=== PATIENT | female | born 1970 | race Caucasian/White ===

== ENCOUNTER 2017-06-16 11:53 | Emergency (ER) | payer OTHER ==
[2017-06-16 12:00] VITALS: BP 120/60; PULSE 65; TEMP 98; BMI 26.5
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
[2017-06-16] MEDS ORDERED: CYCLOBENZAPRINE HCL 5 MG TABLET PO SCH (12:30)
[2017-06-16] MEDS ORDERED: CYCLOBENZAPRINE HCL 10 MG TABLET (FP) ONE (12:31)
[2017-06-16] MEDS ORDERED: KETOROLAC TROMETHAMINE 60 MG/2 ML VIAL IM ONE (13:21)
[2017-06-16] MEDS ORDERED: KETOROLAC TROMETHAMINE 60 MG/2 ML VIAL ONE (13:26)
== END 2017-06-16 14:12 | disposition home or self-care (01) ==
LOC: JERFT 11:53
PROC: 3E0233Z Introduction of Anti-inflammatory into Muscle, Percutaneous Approach (ICD-10-PCS; principal; 2017-06-16)
DX: V43.52XA Car driver injured in collision with other type car in traffic accident, initial encounter (principal); Y93.89 Activity, other specified; Y92.410 Unspecified street and highway as the place of occurrence of the external cause; M62.838 Other muscle spasm; M48.02 Spinal stenosis, cervical region
CPT/HCPCS: 70450-TC; 72125-TC; 84703; 99281-25

== ENCOUNTER 2017-06-18 12:35 | Emergency (ER) | payer OTHER ==
[2017-06-18 12:41] VITALS: TEMP 98.4; BMI 26.5
--- NOTE | 2017-06-18 12:55 | PDOC ---
History of Present Illness - General Chief Complaint: Chest Pain Stated Complaint: CHEST PAIN Time Seen by Provider: 06/18/17 12:52 - History of Present Illness Initial Comments: 06/18/17 13:05 The patient is a 44 year old female with PMHx of HTN, Asthma, HLD, Anxiety, CAD , bridge syndrome,MVP, A-fib, Anxiety, who presents to the ED with left sided- chest pain, non-radiating since this morning around 8am. The pain makes the chest feel tight, is cramping,comes and goes. Pain sometimes increased with deep inspiration. 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 Family history of cardiac-related deaths in members in their 50's and 60's. 06/18/17 13:26 Past History - Past Medical History Allergies/Adverse Reactions: Allergies Allergy/AdvReac Type Severity Reaction Status Date / Time No Known Allergies Allergy Verified 06/18/17 12:40 Home Medications: Ambulatory Orders Cyclobenzaprine HCl [Flexeril -] 10 mg PO TID #15 tablet 06/16/17 Anemia: No Asthma: Yes Cancer: No (MVP, PVC'S) Cardiac Disorders: Yes CVA: No COPD: No CHF: No Dementia: No Diabetes: No GI Disorders: No Disorders: No HTN: Yes Hypercholesterolemia: Yes Kidney Stones: No Liver Disease: No Psychiatric Problems: Yes (ANXIETY.) Seizures: No Thyroid Disease: No - Surgical History Abdominal Surgery: No Appendectomy: Yes Cardiac Surgery: No Cholecystectomy: No Lung Surgery: No Neurologic Surgery: No Orthopedic Surgery: Yes (left knee replacement in 1995) - Reproductive History (#): 4 Para: 2 Therapeutic (s) & number: Yes (1) Spontaneous : 1 - Immunization History Immunization Up to Date: Yes - Suicide/Smoking/Psychosocial Hx Smoking Status: Yes Smoking History: Current every day smoker Have you smoked in the past 12 months: Yes Number of Cigarettes Smoked Daily: 10 Information on smoking cessation initiated: No 'Breaking Loose' booklet given: 06/16/17 Hx Alcohol Use: No Drug/Substance Use Hx: No Substance Use Type: None Hx Substance Use Treatment: Yes Cardiac Specific PMH - Complaint Specific PMHX Pacemaker: No Review of Systems - Review of Systems Able to Perform ROS?: Yes Is the patient limited Panamanian proficient: No Constitutional: No: Symptoms Reported HEENTM: No: Symptoms Reported Respiratory: No: Symptoms reported Cardiac (ROS): Yes: See HPI. No: Symptoms Reported : No: Symptoms Reported Musculoskeletal: No: Symptoms Reported Integumentary: No: Symptoms Reported Neurological: No: Symptoms reported All Other Systems: Reviewed and Negative *Physical Exam - Vital Signs Last Vital Signs Temp Pulse Resp BP Pulse Ox 98.4 F 71 18 121/72 99 06/18/17 12:37 06/18/17 12:37 06/18/17 12:37 06/18/17 12:37 06/18/17 12:37 - Physical Exam General Appearance: Yes: Nourished, Appropriately Dressed. No: Apparent Distress HEENT: positive: EOMI, NINI, Normal ENT Inspection Neck: negative: Tender Respiratory/Chest: positive: Lungs Clear, Normal Breath Sounds. negative: Chest Tender, Respiratory Distress Cardiovascular: positive: Regular Rhythm, Regular Rate, S1, S2 Gastrointestinal/Abdominal: positive: Normal Bowel Sounds, Flat. negative: Tender ED Treatment Course - LABORATORY CBC & Chemistry Diagram: 06/18/17 13:19 06/18/17 13:19 - ADDITIONAL ORDERS Additional order review: Laboratory Results 06/18/17 06/18/17 06/18/17 15:00 13:19 13:19 PT with INR 11.60 INR 1.03 PTT (Actin FS) 29.9 Sodium Potassium Chloride Carbon Dioxide Anion Gap BUN Creatinine Creat Clearance w eGFR Random Glucose Calcium Total Bilirubin AST ALT Alkaline Phosphatase Creatine Kinase 107 Troponin I < 0.02 Total Protein Albumin Beta HCG, Quant < 1.0 Urine Color Urine Appearance Urine pH Ur Specific [place] Urine Protein Urine Glucose (UA) Urine Ketones Urine Blood Urine Nitrite Urine Bilirubin Urine Urobilinogen Ur Leukocyte Esterase 06/18/17 06/18/17 13:19 13:19 PT with INR INR PTT (Actin FS) Sodium 139 Potassium 5.2 H D Chloride 107 Carbon Dioxide 25 Anion Gap 7 L BUN 17 D Creatinine 0.8 Creat Clearance w eGFR > 60 Random Glucose 74 Calcium 8.5 Total Bilirubin 0.3 D AST 22 D ALT 21 Alkaline Phosphatase 59 Creatine Kinase 111 Troponin I < 0.02 Total Protein 7.2 Albumin 4.1 Beta HCG, Quant Urine Color Ltyellow Urine Appearance Slcloudy Urine pH 5.0 Ur Specific [place] 1.013 Urine Protein Negative Urine Glucose (UA) Negative Urine Ketones Negative Urine Blood Negative Urine Nitrite Negative Urine Bilirubin Negative Urine Urobilinogen Negative Ur Leukocyte Esterase Negative 06/18/17 13:19 RBC 4.18 MCV 91.9 MCHC 33.7 RDW 14.2 MPV 8.3 D Neutrophils % 69.4 D Lymphocytes % 17.9 D Monocytes % 7.0 Eosinophils % 5.0 H Basophils % 0.7 - RADIOLOGY Radiology Studies Ordered: Category Date Time Status CHEST X-RAY PORTABLE* [RAD] Stat Radiology 06/18/17 12:54 Completed Medical Decision Making - Medical Decision Making 06/18/17 14:52 Basic labs and cardiac panel pending. CXR: A single view the chest is been submitted. Since 03/10/2015, there is a slightly weaker inspiration with clear lungs, normal mediastinum and sharp angles. There is a slight scoliosis. The soft tissues are intact. An acute process is not seen. Impression: Scoliosis. No acute chest pathology. No change of an adverse nature since 2014 Will repeat panel 3 hours later. 06/18/17 15:59 Both set of tomonins negative patient ok to D/C Follow up with oil derrick operator. *DC/Admit/Observation/Transfer Diagnosis at time of Disposition: Atypical chest pain - Discharge Dispostion Disposition: HOME Admit: No - Referrals Referrals: STAFF,NOT ON [Primary Care Provider] - - Patient Instructions Printed Discharge Instructions: DI for Atypical Chest Pain Additional Instructions: Please follow up with your primary physician and oil derrick operator within the next 3- 4 days Come back to the ER for any new, worsening or concerning symptom. - Post Discharge Activity
[2017-06-18 13:44] LABS: BASO % 0.7 % (0-2.0); HEMATOCRIT 38.5 % (32.4-45.2); LYMPH % 17.9 % (8-40); MCHC 33.7 g/dl (32.0-36.0); MEAN CELL VOLUME 91.9 fl (80-96); MEAN PLT VOLUME 8.3 fl (7.5-11.1); NEUT % 69.4 % (42.8-82.8); PLATELET COUNT 262 K/MM3 (134-434); RBC 4.18 M/mm3 (3.60-5.2); RDW 14.2 % (11.6-15.6); WHITE BLOOD COUNT 8.3 K/mm3 (4.0-10.0)
[2017-06-18 13:58] LABS: INR 1.03 (0.82-1.09); PROTHROMBIN TIME (PATIENT) 11.6 SEC (9.98-11.88)
[2017-06-18 14:01] LABS: ACTIVATED PTT 29.9 SECONDS (26.9-34.4)
[2017-06-18 14:12] LABS: ALBUMIN 4.1 g/dl (3.4-5.0); ANION GAP 7 (8-16); BILIRUBIN,TOTAL 0.3 mg/dL (0.2-1.0); BLOOD UREA NITROGEN 17 mg/dL (7-18); CALCIUM 8.5 mg/dL (8.5-10.1); CHLORIDE 107 mmol/L (98-107); CO2 25 mmol/L (21-32); CREATININE 0.8 mg/dL (0.55-1.02); GLUCOSE,RANDOM 74 mg/dL (74-106); POTASSIUM 5.2 mmol/L (3.5-5.1); SGOT/AST 22 U/L (15-37); SGPT/ALT 21 U/L (12-78); SODIUM 139 mmol/L (136-145); TOT PROT 7.2 g/dl (6.4-8.2)
[2017-06-18 14:14] LABS: ALK PHOS 59 U/L (45-117); URINE APPEARANCE SLCLOUDY; URINE BILIRUBIN NEGATIVE (NEGATIVE); URINE BLOOD NEGATIVE (NEGATIVE); URINE COLOR LTYELLOW; URINE GLUCOSE (UA) NEGATIVE (NEGATIVE); URINE KETONE NEGATIVE (NEGATIVE); URINE LEUK ESTERASE NEGATIVE (NEGATIVE); URINE NITRITE NEGATIVE (NEGATIVE); URINE PROTEIN NEGATIVE (NEGATIVE); URINE UROBILINOGEN NEGATIVE mg/dL (0.2-1.0)
--- NOTE | 2017-06-18 14:41 | PDOC ---
Attending Attestation - HPI HPI: 06/18/17 14:59 The patient is a 46 year old female, current smoker (10 cigarettes daily), with a past medical history of hypertension, asthma, hyperlipidemia, anxiety, coronary artery disease, "bridge syndrome," mitral valve prolapse, and atrial- fibrillation who presents to the emergency department with left-sided intermittent chest pain, non-radiating since 8 am this morning. The patient describes her chest pain as moderate tight, cramping, and waxing and waning. The patient reports her pain worsening with deep inspiration. She reports her pain occasionally radiating to her jaw during very painful episodes. She denies any shortness of breath. She denies any dizziness, weakness, numbness or tingling in all extremities. She denies any contraceptive use. She denies any history of deep venous thrombosis. She reports being sober for the past year. She reports a family history of cardiac-related deaths in members in their 50's and 60's. - Physicial Exam PE: 06/18/17 15:09 Vitals: Triage Vital signs reviewed General Appearance: no acute distress, well nourished well developed, Head: Atraumatic, normocephalic Eyes: Pupils equal reactive round, extraocular movement intact Ears: TM's normal bilaterally; Nose: Nares patent bilaterally;no nasal congestion Throat: Posterior oropharynx without erythema, mucous membranes moist, Neck: Supple;No Nuchal rigidity Chest Wall: Nontender Cardiac: Regular rate and rhythm, no murmurs, no rubs, no gallops, Lungs: Clear to auscultation bilateral, good air movement bilaterally, Abdomen: Soft, nondistended, normal bowel sounds, nontender to palpation Rectal: Exam deferred Extremities: Full range of motion to all extremities, no cyanosis, clubbing, or edema Skin: Warm and dry, no rashes or lesions, no petechiae Neuro: AOX3; Cranial Nerves 2-12 grossly c intact, Strength intact to all extremities, Sensation intact to all extremities, gait normal Psych: normal mood, normal affect - Medical Decision Making 06/18/17 15:09 Documentation prepared by Ratna Chand, acting as certified medical assistant for Stephen Wilkins MD. <Ratna Chand - Last Filed: 06/18/17 15:22> - Resident Resident Name: José Miguel Orlando - ED Attending Attestation I have performed the following: I have examined & evaluated the patient, The case was reviewed & discussed with the resident, I agree w/resident's findings & plan, Exceptions are as noted - Medical Decision Making Heart score 3 troponin negative 2 Chest pain-free nonischemic EKG Patient has cardiology follow-up Findings, the need for follow-up, strict return instructions discussed with patient. <Stephen Wilkins - Last Filed: 06/18/17 16:34> Heart Score/ECG Review - ECG Impressions Comment:: 06/18/17 15:19 EKG performed at 12:43 demonstrates rate of 68 <Ratna Chand - Last Filed: 06/18/17 15:22>
[2017-06-18 16:12] VITALS: BP 112/76; PULSE 72
--- NOTE | 2017-06-19 12:37 | EKG ---
Test Reason : Blood Pressure : / mmHG Vent. Rate : 068 BPM Atrial Rate : 068 BPM P-R Int : 150 ms QRS Dur : 092 ms QT Int : 410 ms P-R-T Axes : 070 017 017 degrees QTc Int : 435 ms SINUS RHYTHM NONSPECIFIC T WAVE ABNORMALITY ABNORMAL ECG WHEN COMPARED WITH ECG OF 10-MAR-2015 21:23, T WAVE VARIATION Confirmed by IVETTE SHANNON MD ([id number]) on 06/19/2017 12:37:34 PM Referred By: Confirmed By:IVETTE SHANNON MD
== END 2017-06-18 16:13 | disposition home or self-care (01) ==
LOC: JER 12:35
DX: R07.89 Other chest pain (principal); I10 Essential (primary) hypertension; E78.00 Pure hypercholesterolemia, unspecified; F41.9 Anxiety disorder, unspecified; I34.1 Nonrheumatic mitral (valve) prolapse
CPT/HCPCS: 36415; 71045-TC; 80053; 81003; 82550; 84484; 84702; 85025; 85610; 85730; 93005; 93010; 99284-25

== ENCOUNTER 2017-10-31 09:49 | Emergency (ER) | payer OTHER ==
[2017-10-31 10:01] VITALS: BP 119/87; PULSE 77; TEMP 98.6; BMI 26.9
--- NOTE | 2017-10-31 10:30 | PDOC ---
History of Present Illness - General Chief Complaint: Cold Symptoms Stated Complaint: CONGESTION Time Seen by Provider: 10/31/17 10:24 History Source: Patient Exam Limitations: No Limitations - History of Present Illness Initial Comments: 10/31/17 10:30 Best Contact: PCP: Gustavo name Pmhx: n PVC syndrome, mitral valve leak, bridge syndrome Pshx: 1980s: [facility] scopic appendectomy, 1990s: Left knee arthroscopy/C-sections Allergies:NKDA LMP: 10/13/2017 47-year-old female presents to the ER complaining of facial pain, bilateral ear clogging sensation 4 days without fever, chills, sore throat nausea/vomiting, ear ache, difficulty swallowing, neck stiffness/pain, back pain, chest pain, shortness of breath, abdominal pains, flank pains, urinary symptoms. Past History - Past Medical History Allergies/Adverse Reactions: Allergies Allergy/AdvReac Type Severity Reaction Status Date / Time No Known Allergies Allergy Verified 10/31/17 09:56 Home Medications: Ambulatory Orders Amoxicillin/Potassium Clav [Augmentin 875-125 Tablet] 1 each PO BID #20 tablet 10/31/17 Anemia: No Asthma: Yes Cancer: No (MVP, PVC'S, bridge syndrome) Cardiac Disorders: Yes CVA: No COPD: No CHF: No Dementia: No Diabetes: No GI Disorders: No Disorders: No HTN: Yes Hypercholesterolemia: Yes Kidney Stones: No Liver Disease: No Psychiatric Problems: Yes (ANXIETY.) Seizures: No Thyroid Disease: No - Surgical History Abdominal Surgery: No Appendectomy: Yes Cardiac Surgery: No Cholecystectomy: No Lung Surgery: No Neurologic Surgery: No Orthopedic Surgery: Yes (left knee replacement in 1995) - Reproductive History (#): 4 Para: 2 Therapeutic (s) & number: Yes (1) Spontaneous : 1 - Immunization History Immunization Up to Date: Yes - Suicide/Smoking/Psychosocial Hx Smoking Status: Yes Smoking History: Current every day smoker Have you smoked in the past 12 months: Yes Number of Cigarettes Smoked Daily: 10 Information on smoking cessation initiated: Yes 'Breaking Loose' booklet given: 10/31/17 Hx Alcohol Use: No Drug/Substance Use Hx: No Substance Use Type: None Hx Substance Use Treatment: Yes Review of Systems - Review of Systems Able to Perform ROS?: Yes Comments:: 10/31/17 10:28 CONSTITUTIONAL: Absent: fever, chills, diaphoresis, generalized weakness, malaise, loss of appetite HEENT: +maxillar sinus fullness, Ear clogging sensation Absent: rhinorrhea, nasal congestion, throat pain, throat swelling, difficulty swallowing, mouth swelling, ear pain, eye pain, visual Changes CARDIOVASCULAR: Absent: chest pain, loss of consciousness, palpitations, irregular heart rate, peripheral edema RESPIRATORY: Absent: cough, shortness of breath, dyspnea with exertion, orthopnea, wheezing, stridor, hemoptysis GASTROINTESTINAL: Absent: abdominal pain, abdominal distension, nausea, vomiting, diarrhea, constipation, melena, hematochezia GENITOURINARY: Absent: dysuria, frequency, urgency, hesitancy, hematuria, flank pain, genital pain MUSCULOSKELETAL: Absent: myalgia, arthralgia, joint swelling SKIN: Absent: rash, itching, pallor Is the patient limited Moroccan proficient: No *Physical Exam - Vital Signs Last Vital Signs Temp Pulse Resp BP Pulse Ox 98.6 F 77 18 119/87 100 10/31/17 09:58 10/31/17 09:58 10/31/17 09:58 10/31/17 09:58 10/31/17 09:58 - Physical Exam Comments: 10/31/17 10:28 GENERAL: Well developed, well nourished. Awake and alert. No acute distress. HEENT: +Facial maxillar pain on perciussion Normocephalic, atraumatic. PERRLA, EOMI. No conjunctival pallor. Sclera are non- icteric. Moist mucous membranes. Oropharynx is clear. NECK: Supple. Full ROM. No JVD. Carotid pulses 2+ and symmetric, without bruits. No thyromegaly. No lymphadenopathy. CARDIOVASCULAR: Regular rate and rhythm. No murmurs, rubs, or gallops. Distal pulses are 2+ and symmetric. PULMONARY: No evidence of respiratory distress. Lungs clear to auscultation bilaterally. No wheezing, rales or rhonchi. ABDOMINAL: Soft. Non-tender. Non-distended. No rebound or guarding. No organomegaly. Normoactive bowel sounds. MUSCULOSKELETAL Normal range of motion at all joints. No bony deformities or tenderness. No CVA tenderness. EXTREMITIES: No cyanosis. No clubbing. No edema. No calf tenderness. SKIN: Warm and dry. Normal capillary refill. No rashes. No jaundice. NEUROLOGICAL: Alert, awake, appropriate. Cranial nerves 2-12 intact. No deficits to light touch and temperature in face, upper extremities and lower extremities. No motor deficits in the in face, upper extremities and lower extremities. Normoreflexic in the upper and lower extremities. Normal speech. Toes are down- going bilaterally. Gait is normal without ataxia. PSYCHIATRIC: Cooperative. Good eye contact. Appropriate mood and affect. Moderate Sedation - Procedure Monitoring Vital Signs: Vital Signs Temp Pulse Resp BP Pulse Ox 98.6 F 77 18 119/87 100 10/31/17 09:58 10/31/17 09:58 10/31/17 09:58 10/31/17 09:58 10/31/17 09:58 *DC/Admit/Observation/Transfer Diagnosis at time of Disposition: Sinusitis Qualifiers: Sinusitis location: maxillary Chronicity: unspecified Qualified Code(s): J32.0 - Chronic maxillary sinusitis - Discharge Dispostion Disposition: HOME Condition at time of disposition: Stable Decision to Admit order: No - Prescriptions Prescriptions: Amoxicillin/Potassium Clav [Augmentin 875-125 Tablet] 1 each PO BID #20 tablet - Referrals Referrals: Benjie Parson MD [Staff Physician] - - Patient Instructions Printed Discharge Instructions: DI for Sinusitis Additional Instructions: Antibiotics as prescribed until completion/Augmentin Follow with the ENT listed on your discharge Return to the ER for any concerns, persistent/worsening or severe symptoms - Post Discharge Activity
== END 2017-10-31 10:35 | disposition home or self-care (01) ==
LOC: JERFT 09:49
DX: J32.0 Chronic maxillary sinusitis (principal)
CPT/HCPCS: 99281-25

== ENCOUNTER 2017-12-04 13:25 | Emergency (ER) | payer OTHER ==
[2017-12-04 13:31] VITALS: BP 112/72; PULSE 65; TEMP 98.2; BMI 27.4
[2017-12-04] MEDS ORDERED: DEXAMETHASONE LIQUID 0.5 MG/5 ML 240 ML BULK BOTTLE PO ONE (14:06)
[2017-12-04] MEDS ORDERED: DEXAMETHASONE SOD PHOSPHATE 10 MG/1 ML VIAL ONE (14:08)
--- NOTE | 2017-12-04 14:13 | PDOC ---
History of Present Illness - General Chief Complaint: Rash Stated Complaint: RASH - History of Present Illness Initial Comments: 47-year-old female presents for evaluation of rash 4 days. She states her rash has been very itchy there were no precipitating factors. She denies any associated symptoms. She has a history of hypertension. Cardiac valve disorder. 12/04/17 14:08 Past History - Past Medical History Allergies/Adverse Reactions: Allergies Allergy/AdvReac Type Severity Reaction Status Date / Time No Known Allergies Allergy Verified 12/04/17 13:28 Home Medications: Ambulatory Orders Gabapentin 300 mg PO BID 12/04/17 Metoprolol Succinate 50 mg PO BID 12/04/17 Mometasone Furoate [Elocon] 15 gm TP BID #1 tube 12/04/17 Nitroglycerin 0.3 mg SL DAILY 12/04/17 Quetiapine Fumarate [Seroquel] 150 tab PO HS 12/04/17 Ranolazine [Ranexa] 500 mg PO BID 12/04/17 Sertraline HCl [Zoloft] 100 mg PO DAILY 12/04/17 Anemia: No Asthma: Yes Cancer: No (MVP, PVC'S, bridge syndrome) Cardiac Disorders: Yes CVA: No COPD: No CHF: No DVT: No Dementia: No Diabetes: No GI Disorders: No Disorders: No HTN: Yes Hypercholesterolemia: Yes Kidney Stones: No Liver Disease: No Psychiatric Problems: Yes (ANXIETY.) Seizures: No Thyroid Disease: No - Surgical History Abdominal Surgery: No Appendectomy: Yes Cardiac Surgery: No Cholecystectomy: No Lung Surgery: No Neurologic Surgery: No Orthopedic Surgery: Yes (left knee replacement in 1995) - Reproductive History (#): 4 Para: 2 Therapeutic (s) & number: Yes (1) Spontaneous : 1 - Immunization History Immunization Up to Date: Yes - Suicide/Smoking/Psychosocial Hx Smoking Status: Yes Smoking History: Current every day smoker Have you smoked in the past 12 months: Yes Number of Cigarettes Smoked Daily: 10 Information on smoking cessation initiated: Yes 'Breaking Loose' booklet given: 12/04/17 Hx Alcohol Use: No Drug/Substance Use Hx: No Substance Use Type: None Hx Substance Use Treatment: Yes Review of Systems - Review of Systems Integumentary: Yes: Rash All Other Systems: Reviewed and Negative *Physical Exam - Vital Signs Last Vital Signs Temp Pulse Resp BP Pulse Ox 98.2 F 65 18 112/72 100 12/04/17 13:28 12/04/17 13:28 12/04/17 13:28 12/04/17 13:28 12/04/17 13:28 - Physical Exam Comments: There is diffuse macular papular rash with raised wheals diffusely across the back and chest there is one on the right cheek and a small amount on the arms. GENERAL: The patient is awake, alert, and fully oriented, in no acute distress. HEAD: Normal with no signs of trauma. Oral mucosa is normal NECK: Normal range of motion, supple without lymphadenopathy, JVD, or masses. LUNGS: Breath sounds equal, clear to auscultation bilaterally. No wheezes, and no crackles. HEART: Regular rate and rhythm, normal S1 and S2 without murmur, rub or gallop. ABDOMEN: Soft, nontender, normoactive bowel sounds. No guarding, no rebound. No masses. EXTREMITIES: Normal range of motion, no edema. No clubbing or cyanosis. No cords, erythema, or tenderness. NEUROLOGICAL: Cranial nerves II through XII grossly intact. Normal speech, normal gait. PSYCH: Normal mood, normal affect. 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 I have advised her to remain on the Valtrex. I've added and steroid cream. I've also given her a dose of Decadron in the emergency room. I will give her close dermatologic follow-up.She was on valtrex prior to the presentation of the rash. 12/04/17 14:12 12/04/17 14:15 *DC/Admit/Observation/Transfer Diagnosis at time of Disposition: Rash - Discharge Dispostion Disposition: HOME Condition at time of disposition: Stable Decision to Admit order: No - Prescriptions Prescriptions: Mometasone Furoate [Elocon] 15 gm TP BID #1 tube - Referrals Referrals: Sanjeev Delgado MD [Non Staff, Medical] - Jayesh Ureña MD [Non Staff, Medical] - Benjie Vyas MD [Non Staff, Medical] - Abhi Sargent MD [Non Staff, Medical] - Jeffrey Asif [Staff Physician] - Mari Pagan MD [Non Staff, Medical] - Rory Corbin MD [Non Staff, Medical] - Greta Storey [Staff Physician] - Alex Huitron MD [Non Staff, Medical] - Deirdre Valdez MD [Non Staff, Medical] - Leeann Mark MD [Non Staff, Medical] - Bryan Caldwell MD [Non Staff, Medical] - Sylvain Zuñiga MD [Non Staff, Medical] - - Patient Instructions Printed Discharge Instructions: DI for Rash Additional Instructions: Please return to the ER should her symptoms worsen or go unresolved. I've given you a dose of steroids in the emergency room. I've also given you a steroid cream which should help with her itching. Apply is dime size amount steroid cream tear chest and back twice a day for your symptoms. It's very important few to follow-up with dermatology for further evaluation and treatment options. I've given you a list of local dermatologists. - Post Discharge Activity
== END 2017-12-04 14:19 | disposition home or self-care (01) ==
LOC: JERFT 13:25
DX: R21 Rash and other nonspecific skin eruption (principal); I10 Essential (primary) hypertension; E78.00 Pure hypercholesterolemia, unspecified; F41.9 Anxiety disorder, unspecified; F17.210 Nicotine dependence, cigarettes, uncomplicated; Z96.652 Presence of left artificial knee joint; Z86.79 Personal history of other diseases of the circulatory system
CPT/HCPCS: 99281-25

== ENCOUNTER 2018-10-10 05:04 | Day surgery (SDC) | payer OTHER ==
[2018-10-09 10:10] VITALS: BMI 27.4
[2018-10-10] MEDS ORDERED: PROPOFOL 20 ML ONE ×2 (07:50)
[2018-10-10] MEDS ORDERED: SUCCINYLCHOLINE CHLORIDE 200 MG/10 ML VIAL ONE (07:50)
[2018-10-10] MEDS ORDERED: ceFAZolin SODIUM 1 GM VIAL ONE (07:50)
[2018-10-10] MEDS ORDERED: DEXAMETHASONE SOD PHOSPHATE 4 MG/1 ML VIAL ONE (07:50)
[2018-10-10] MEDS ORDERED: MIDAZOLAM HCL 2 MG/2 ML SINGLE DOSE VIAL ONE (07:50)
--- NOTE | 2018-10-10 07:57 | HP ---
[facility] - Chief Complaint Chief Complaint: left knee pain History of Present Illness: left knee lateral meniscus tear History Source: Patient Limitations to Obtaining History: No Limitations - Past Medical History Allergies/Adverse Reactions: Allergies Allergy/AdvReac Type Severity Reaction Status Date / Time No Known Allergies Allergy Verified 10/09/18 10:14 ...LMP: 05/07/15 ...LMP Comment: irregular-none for 2months - Current Medications Current Medications: Home Medications Medication Instructions Recorded Gabapentin 300 mg PO BID 12/04/17 Metoprolol Succinate 50 mg PO BID 12/04/17 Oxycodone HCl/Acetaminophen 1 tab PO PRN PRN 10/09/18 [Percocet 5-325 mg Tablet] Quetiapine Fumarate [Seroquel -] 50 mg PO BID 10/09/18 Quetiapine Fumarate [Seroquel] 150 tab PO HS 10/09/18 Sertraline HCl [Zoloft] 200 mg PO DAILY 10/09/18 Satellite Physical Exam - Physical Examination Vital Signs: Vital Signs Period Temp Pulse Resp BP Sys/Max Pulse Ox Last 24 Hr 97.6 F-97.6 F 58-58 20-20 103-103/67-67 97 General Appearance: Well Nourished ENT: Clear Lung: Clear to auscultation Heart: Regular rate & rhythm Breasts: Soft Abdomen: Soft Extremities: No edema Satellite Impression/Plan - Impression/Plan Impression: left knee pain, lateral meniscus tear Operative Procedure: left knee arthroscopy Date to be Performed: 10/10/18
[2018-10-10] MEDS ORDERED: BUPIVACAINE HCL/PF 0.5% (5MG/ML) 10 ML VIAL ONE (08:13)
[2018-10-10] MEDS ORDERED: ceFAZolin SODIUM 1 GM VIAL IVPB ONE (08:15)
[2018-10-10] MEDS ORDERED: BUPIVACAINE HCL/PF (5 MG/ML) 30 ML VIAL IJ ONE (08:38)
[2018-10-10] MEDS ORDERED: KETOROLAC TROMETHAMINE 30 MG/1 ML VIAL ONE (08:42)
--- NOTE | 2018-10-10 09:00 | OP ---
Operative Note - Note: Operative Date: 10/10/18 Pre-Operative Diagnosis: left knee pain, lateral meniscus tear, OA Operation: left knee arthroscopy, partial lateral meniscectomy, debridement chondroplasty Post-Operative Diagnosis: Same as Pre-op Surgeon: Timo Blankenship Anesthesiologist/COCOA MILLING MACHINE OPERATOR: Mari Carranza Anesthesia: General, Local Specimens Removed: shavings Estimated Blood Loss (mls): 0 Drains, Volume Out (mls): 0 Blood Volume Replaced (mls): 0 Fluid Volume Replaced (mls): 500 Operative Report Dictated: Yes
[2018-10-10] MEDS ORDERED: HYDROmorphone HCl 2 MG/ML VIAL ONE (09:48)
[2018-10-10] MEDS ORDERED: oxyCODONE HCL 5 MG TABLET PO PRN ×2 (10:06)
[2018-10-10] MEDS ORDERED: ONDANSETRON 4 MG/2 ML VIAL IVPUSH PRN (10:06)
[2018-10-10] MEDS ORDERED: HYDROmorphone HCL CARPU-JECT 2 MG/1 ML DISP.SYRIN IVPUSH ONE (10:07)
[2018-10-10] MEDS ORDERED: LACTATED RINGERS SOLUTION 1,000 ML IV SCH (10:15)
--- NOTE | 2018-10-10 10:18 | OP ---
DATE OF OPERATION: 10/10/2018 PREOPERATIVE DIAGNOSIS: Left knee pain, lateral meniscus tear and osteoarthritis. POSTOPERATIVE DIAGNOSIS: Left knee pain, lateral meniscus tear and osteoarthritis. PROCEDURE: Left knee arthroscopy, partial lateral meniscectomy, and debridement of chondroplasty. SURGEON: Timo Blankenship MD FILING CLERK: None. SMT MACHINE OPERATOR: URSULA Carranza ANESTHESIA: LMA anesthesia. DRAINS: None. COMPLICATIONS: None. SPECIMENS: None. BLOOD LOSS: None. BLOOD GIVEN: None. FLUID REPLACEMENT: 500 mL. INDICATIONS: This patient is a 48-year-old female with a preoperative diagnosis of left knee pain, lateral meniscus tear, and osteoarthritis. After understanding the potential risks, complications, alternatives, and benefits of surgery versus nonsurgical treatment, the patient elected to undergo this procedure. DESCRIPTION OF PROCEDURE: The patient was brought to the operating room, peripheral IV placed, and IV sedation was given. Two grams of IV Ancef were given. LMA anesthesia was induced. She was placed into the standard position with a C-clamp leg-baxter, ample padding throughout. The left lower extremity was prepped and draped in sterile fashion, elevated, exsanguinated with an Esmarch bandage. Then, tourniquet was inflated to 275 mmHg. A superior lateral outflow portal was established. The arthroscope was introduced into the joint through the lateral portal under direct visualization using a spinal needle. A medial portal was established, and a diagnostic arthroscopy was performed. A probe was introduced into the medial portal, and overall, the medial compartment looked good. There was no significant osteoarthritis. The medial meniscus looked good. It was probed. Photographs were taken. The intercondylar notch looked good. There were some frayed fibers of the anterior cruciate ligament, which were debrided with the shaver, but the ACL was probed and it was seen to be of good substance and 95% of it intact. There was a lot of excessive synovitis and meniscus-like fibers anterior to the ACL in the area of the coronary ligament. This was debrided with the shaver for better visualization. There was so much of it, it blocked visualization initially. The lateral compartment was directly visualized. The patient was seen to have a complex tear of the body of the lateral meniscus. This was debrided with the curved shaver. Once this was debrided, it was apparent the patient had a complete meniscectomy of the body and anterior horn of the lateral meniscus. The posterior horn of the lateral meniscus was fine. There was some corresponding arthritis starting at the level of the meniscus tear on the tibial plateau as well as the lateral femoral condyle. This was gently debrided. Photographs were taken before and after. Next, our attention turned to the patellofemoral joint. Patient had a tremendous amount of these fibrotic fibers as well as excessive synovitis, both of which were debrided with the curved shaver. 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 A debridement chondroplasty was performed off of this area, as well. The area was copiously irrigated and washed out. All instrumentation, debris, and excess saline removed. The arthroscopy portal was closed with 3-0 nylon sutures. Then, 20 mL of 0.5% Marcaine was introduced into the joint. The area was then covered with Xeroform, 4x4 gauze, Webril, and an SEAMUS bandage. The tourniquet was taken down after a total tourniquet of about 22 minutes. There were no complications during the case. The patient tolerated the procedure quite well and was brought to the ambulatory recovery room in stable condition. Moe [id number]
[2018-10-10 10:44] VITALS: TEMP 97.7
[2018-10-10] MEDS ORDERED: oxyCODONE HCL 5 MG TABLET ONE (10:48)
[2018-10-10 12:14] VITALS: BP 128/70; PULSE 60
== END 2018-10-10 11:55 | disposition home or self-care (01) ==
LOC: JASU-SURG 05:04
PROVIDERS: ATTEND Orthopaedic Surgery
PROC: 0SBD4ZZ Excision of Left Knee Joint, Percutaneous Endoscopic Approach (ICD-10-PCS; principal; 2018-10-10 08:00)
DX: M23.252 Derangement of posterior horn of lateral meniscus due to old tear or injury, left knee (principal); M17.12 Unilateral primary osteoarthritis, left knee; M65.9 Synovitis and tenosynovitis, unspecified
CPT/HCPCS: 84703; 94760; 97116-GP

== ENCOUNTER 2018-11-14 13:12 | Day surgery (SDC) | payer OTHER ==
[2018-11-13 13:15] VITALS: BMI 27.4
--- NOTE | 2018-11-14 11:48 | HP ---
[facility]ellite [facility] - Chief Complaint Chief Complaint: left knee pain s/p arthroscopy - Past Medical History Allergies/Adverse Reactions: Allergies Allergy/AdvReac Type Severity Reaction Status Date / Time No Known Allergies Allergy Verified 11/13/18 13:15 ...LMP: 05/07/15 ...LMP Comment: september 2018 - Current Medications Current Medications: Home Medications Medication Instructions Recorded Gabapentin 300 mg PO BID 12/04/17 Metoprolol Succinate 50 mg PO BID 12/04/17 Quetiapine Fumarate [Seroquel -] 50 mg PO BID 10/09/18 Quetiapine Fumarate [Seroquel] 150 tab PO HS 10/09/18 Sertraline HCl [Zoloft] 200 mg PO DAILY 10/09/18 Oxycodone HCl/Acetaminophen 1 - 2 tab PO Q6H #30 tab MDD 6 10/10/18 [Percocet 5-325 mg Tablet] Ranolazine [Ranexa] 500 mg PO BID 11/13/18 Satellite Physical Exam - Physical Examination General Appearance: Well Nourished, Well Developed, Alert & Oriented x3 ENT: Clear Lung: Normal air movement Heart: Regular rate & rhythm Extremities: Other (left knee- + swelling, + ttp ,decr rom ,nvi) Neurological: Intact, Alert, Oriented Satellite Impression/Plan - Impression/Plan Impression: left knee internal derangement, septic knee Operative Procedure: left knee arthroscopy with washout Date to be Performed: 11/14/18
[2018-11-14] MEDS ORDERED: MIDAZOLAM HCL 2 MG/2 ML SINGLE DOSE VIAL ONE ×2 (15:56→16:29)
[2018-11-14] MEDS ORDERED: PROMETHAZINE HCL 25 MG/1 ML VIAL IVPB PRN (16:16)
[2018-11-14] MEDS ORDERED: oxyCODONE HCL 5 MG TABLET PO PRN (16:16)
[2018-11-14] MEDS ORDERED: ONDANSETRON 4 MG/2 ML VIAL IVPUSH PRN (16:16)
[2018-11-14] MEDS ORDERED: PROPOFOL 20 ML ONE (16:29)
[2018-11-14] MEDS ORDERED: BUPIVACAINE HCL/PF 0.5% (5MG/ML) 10 ML VIAL IJ ONE ×2 (16:30)
[2018-11-14] MEDS ORDERED: ceFAZolin 2 GRAM PREMIX BAG IVPB ONE (16:35)
[2018-11-14] MEDS ORDERED: KETOROLAC TROMETHAMINE 30 MG/1 ML VIAL ONE (16:40)
[2018-11-14] MEDS ORDERED: ePHEDrine SULFATE 50 MG/1 ML AMPULE ONE (16:43)
[2018-11-14] MEDS ORDERED: BACITRACIN 50,000 UNITS VIAL TP ONE (16:55)
--- NOTE | 2018-11-14 17:35 | OP ---
Operative Note - Note: Operative Date: 11/14/18 Pre-Operative Diagnosis: left knee pain, recurrent effusions, possible infection Operation: left knee arthroscopy, partial synovectomy, wash out Findings: no pus Post-Operative Diagnosis: Same as Pre-op Surgeon: Timo Blankenship Anesthesiologist/DIFFERENTIAL SPECIALIST: Ever Mulligan Anesthesia: General, Local Specimens Removed: shavings, fluid Estimated Blood Loss (mls): 0 Drains, Volume Out (mls): 0 Blood Volume Replaced (mls): 0 Fluid Volume Replaced (mls): 500 Operative Report Dictated: Yes
[2018-11-14 19:33] VITALS: BP 120/77; PULSE 63; TEMP 97.7
--- NOTE | 2018-11-16 00:33 | OP ---
DATE OF OPERATION: 11/14/2018 PREOPERATIVE DIAGNOSES: Left knee pain and recurrent effusions, possible infection. POSTOPERATIVE DIAGNOSES: Left knee pain and recurrent effusions, possible infection. PROCEDURE: Left knee arthroscopy, partial synovectomy, and arthroscopic washout. SURGEON: Robyn Her MD ASSISTANTS: None. ANESTHESIOLOGIST: Ever Mulligan CRNA DRAINS: None. COMPLICATIONS: None. SPECIMEN: Intraarticular fluid 10 mL with 2 culture sticks. BLOOD LOSS: None. BLOOD GIVEN: None. FLUID REPLACEMENT: 500 mL. This patient is a 48-year-old female who is status post left knee arthroscopy. Her postoperative story is strange. She was doing great for 2 weeks. She said she had no pain, full range of motion, felt great, looked great. No swelling. No effusions. Then, all of a sudden, she started developing recurrent effusions. She denies any history of any traumatic event around that time. She eventually ended up at the [facility] Emergency Room where her knee was aspirated, and although it has been difficult getting the results, according to the patient, it is positive for a staphylococcal infection. She has been on Augmentin. She said her left knee is dramatically better. That being said, she still has some recurrent effusions. She is in a lot of pain and is unable to flex it or extend it comfortably. Therefore, the decision was made to do a left knee arthroscopy and an arthroscopic washout, not only for diagnostic purposes, but also for therapeutic purposes to wash it out effectively. The patient was brought to the operating room. Peripheral IV placed, and IV sedation given. She was given 2 g of IV Ancef. She had LMA anesthesia induced. She was placed in supine position. Ample Webril was placed around the left leg. She was placed in the C-clamp leg baxter with ample padding throughout. The left lower extremity was prepped and draped in sterile fashion, elevated, exsanguinated with an Esmarch bandage. Tourniquet inflated to 250 mmHg. A lateral portal was made. There was no tense effusion. It was not as if pus shot out from her knee, but I was able to squeeze the knee and express about 10 mL of thick, inflammatory, blood-tinged synovial fluid. This was sent off for specimen, culture, sensitivity, Gram stain, cell count, and 2 culture sticks were sent off from this fluid as well. A superior medial outflow portal was established. A lateral portal was established using spinal needle under direct visualization, and a diagnostic arthroscopy was performed. There was no obvious pus inside the knee. It all looked quite good. We washed out the knee with sterile saline which had been infused with 50,000 units of bacitracin. In the medial compartment, the patient had no obvious changes. The medial meniscus looked good. There was a small area of mild debridement. The medial femoral condyle and medial tibial plateau both looked good. They had grade 1 chondromalacial changes, but no signs of any destruction from bacterial infection, for example. A shaver was introduced into this compartment, and it was copiously irrigated and washed out, using the shaver as well. The intercondylar notch looked good. There was some synovitis. This was removed. The ACL looked good, had the appropriate tension. Next, our attention was turned to the lateral compartment. The patient was seen to have mild chondromalacia of the lateral compartment. The patient had mild arthritis of the lateral femoral condyle, lateral tibial plateau as well. A good portion of the body and anterior horn of the lateral meniscus had been removed. There was some synovitis here that was removed as well. I probed lateral meniscus, and there was no tear. It was copiously irrigated and washed out with the shaver and saline infused with the bacitracin. Next, our attention was turned to the patellofemoral joint. The patient had significant grade 4 osteoarthritis of the undersurface of the patella as well as the femoral trochlea. A gentle debridement chondroplasty was performed. An additional partial synovectomy was done of the synovium in the suprapatellar pouch. However, it was not excessive to begin with. There was no area that looked very angry, erythematous. It was not bleeding. Overall, the knee itself looked quite good with no surprises, not a lot of fluid. No pus. No excessive synovitis. No signs of destruction via a bacterial infection. I washed the knee out with a total of 4500 mL of sterile saline which had been infused with 50,000 units of bacitracin. The instrumentation was removed. All excess saline removed. The arthroscopy portals were closed with 3-0 nylon suture. The area was then washed and dried, covered with Xeroform, 4 x 4, Webril, and Nathan bandage. Tourniquet was taken down at total tourniquet time of 30 minutes. There were no complications during the case. Patient tolerated the procedure well and was brought to the ambulatory recovery room in stable condition. ROBYN HER M.D. [id number]
--- NOTE | 2018-11-16 15:47 | PATH ---
Surgical Pathology Report Patient Name: ANGELIA YOST [facility]. Rec. #: [id number] /Age/Gender: 1970 (Age: 48) / F Account: [id number] Location: [facility] SURGICAL Taken: 11/14/2018 Received: 11/15/2018 Reported: 11/16/2018 Physicians: Timo Blankenship M.D. Specimen(s) Received LEFT KNEE SHAVINGS Clinical History Infection left knee Final Diagnosis KNEE SHAVINGS, LEFT, ARTHROSCOPY AND PARTIAL SYNOVECTOMY: FRAGMENTS OF CARTILAGE, ADIPOSE TISSUE, AND FIBROSYNOVIAL TISSUE WITH CHRONIC INFLAMMATION AND REACTIVE CHANGES. Electronically Signed Mere Michel M.D. Gross Description Received in formalin, labeled "shavings left knee," is a 5.0 x 3.8 x 0.4 cm. aggregate of meier-yellow soft tissue fragments. A hospital sales representative portion is submitted in one cassette. /11/15/201811/15/2018
== END 2018-11-14 19:15 | disposition home or self-care (01) ==
LOC: JASU-SURG 13:12
PROVIDERS: ATTEND Orthopaedic Surgery
PROC: 0S9D4ZZ Drainage of Left Knee Joint, Percutaneous Endoscopic Approach (ICD-10-PCS; principal; 2018-11-14 14:30)
DX: M25.462 Effusion, left knee (principal); M25.562 Pain in left knee; M65.9 Synovitis and tenosynovitis, unspecified; Z98.890 Other specified postprocedural states
CPT/HCPCS: 84703; 87070; 87075; 87205; 88304-TC; 94760

== ENCOUNTER 2018-12-04 15:34 | Emergency (ER) | payer OTHER | END 2018-12-04 20:44 | disposition home or self-care (01) | LOC: JER 15:34 ==

== ENCOUNTER 2020-03-03 07:51 | Day surgery (SDC) | payer OTHER ==
[2020-03-02 10:19] VITALS: BMI 28.5
--- OUTSIDE RECORDS SUMMARY | 2020-03-03 07:14 | XMS ---
:1970 Author Organization [facility] Support Name Relationship Address Phone [facility] Unavailable [address] [phone] [place] [address] [employer] [address] [place] [address] [place] [address] Re-disclosure Warning The records that you are about to access may contain information from federally- assisted alcohol or drug abuse programs. If such information is present, then the following federally mandated warning applies: This information has been disclosed to you from records protected by federal confidentiality rules (42 CFR part 2). The federal rules prohibit you from making any further disclosure of this information unless further disclosure is expressly permitted by the written consent of the person to whom it pertains or as otherwise permitted by 42 CFR part 2. A general authorization for the release of medical or other information is NOT sufficient for this purpose. The Federal rules restrict any use of the information to criminally investigate or prosecute any alcohol or drug abuse patient.The records that you are about to access may contain highly sensitive health information, the redisclosure of which is protected by Article 27-F of the [facility] Public Health law. If you continue you may haveaccess to information: Regarding HIV / AIDS; Provided by facilities licensed or operated by the [facility] Office of Mental Health; or Provided by the [facility] Office for People With Developmental Disabilities. If such information is present, then the following [facility] mandated warning applies: This information has been disclosed to you from confidential records which are protected by state law. State law prohibits you from making any further disclosure of this information without the specific written consent of the person to whom it pertains, or as otherwise permitted by law. Any unauthorized further disclosure in violation of state law may result in a fine or snf sentence or both. A general authorization for the release of medical or other information is NOT sufficient authorization for further disclosure. Insurance Providers Payer name Policy type Policy ID Covered Covered alliance party's Policy P rosalba / Coverage alliance party ID relationship to [place] Inf ormation type castro [employer] [id number] SP [id number] INSURANCE [employer]ET[employer] PPO [id number] SP [id number] [place] [id number] Results ID Date Data Source [id number] 02/28/2020 10:02:00 AM EDT [facility] Name Value Range Interpretation Description Data Sup porting Code Source(s) Document(s ) SARS [facility] coronavirus 2 RNA This lab was ordered by LINDA ISIDRO and reported by [facility]. ID Date Data Source [id number] 08/27/2019 08:00:00 PM EDT [facility] Name Value Range Interpretation Code Description Data Trinity rce(s) Supporting Document(s ) 2019-NCOV [facility] RNA PNL XXX [facility]+PROBE This lab was ordered by [facility] and reported by [facility]. Procedure
--- NOTE | 2020-03-03 08:01 | HP ---
[facility]ellite [facility] - Chief Complaint Chief Complaint: left knee pain - Past Medical History Allergies/Adverse Reactions: Allergies Allergy/AdvReac Type Severity Reaction Status Date / Time morphine AdvReac Severe Vomiting Verified 03/02/20 10:09 ...LMP: 05/07/15 ...LMP Comment: 05/2018 - Current Medications Current Medications: Home Medications Medication Instructions Recorded Gabapentin 300 mg PO BID 12/04/17 Metoprolol Succinate 50 mg PO BID 12/04/17 Quetiapine Fumarate [Seroquel -] 50 mg PO BID 10/09/18 Quetiapine Fumarate [Seroquel] 200 tab PO HS 10/09/18 Ranolazine [Ranexa] 1,000 mg PO DAILY 03/02/20 Satellite Physical Exam - Physical Examination General Appearance: Well Nourished, Well Developed, Alert & Oriented x3 ENT: Clear Lung: Normal air movement Extremities: Other (left knee- +swelling, + ttp , decr rom, nvi, xrays show grade 4 PF djd) Neurological: Intact, Alert, Oriented Satellite Impression/Plan - Impression/Plan Impression: left knee PF djd Operative Procedure: left alberto patellofemoral arthroplasty Date to be Performed: 03/03/20
[2020-03-03] MEDS: CELECOXIB 200 MG CAPSULE PO ONE ×2 (08:30→15:54)
[2020-03-03] MEDS ORDERED: TRANEXAMIC ACID 1000 MG/10 ML VIAL ONE ×2 (09:04→11:50)
[2020-03-03] MEDS ORDERED: ceFAZolin SODIUM 1 GM VIAL ONE ×2 (09:04→10:16)
[2020-03-03] MEDS ORDERED: PROPOFOL 20 ML ONE ×3 (09:04)
[2020-03-03] MEDS ORDERED: LIDOCAINE HCL/PF 2% SDV 5ML VIAL ONE (09:04)
[2020-03-03] MEDS ORDERED: CEFAZOLIN 2 GM in DEXTROSE 5%-WATER - 50 ML IVPB ONE (10:00)
[2020-03-03] MEDS ORDERED: TRANEXAMIC ACID 1000 MG/10 ML VIAL IVPUSH ONE (10:00)
[2020-03-03] MEDS ORDERED: MIDAZOLAM HCL 2 MG/2 ML SINGLE DOSE VIAL ONE ×3 (10:10→10:33)
[2020-03-03] MEDS ORDERED: SODIUM CHLORIDE 0.9% P/F 10 ML VIAL IJ ONE (10:11)
[2020-03-03] MEDS ORDERED: BUPIVACAINE HCL/PF 0.5% (5 MG/ML) 30 ML VIAL IJ ONE (10:11)
[2020-03-03] MEDS ORDERED: DEXAMETHASONE SOD PHOSPHATE/PF 10 MG/ML SDV ONE (10:11)
[2020-03-03] MEDS ORDERED: ACETAMINOPHEN INJECTION 100 ML IVPB ONE (10:32)
[2020-03-03] MEDS ORDERED: BUPIVICAINE 0.25%/MORPH PF/KETOROLAC - 51ML DISP.SYRINGE IA ONE ×3 (11:00→12:13)
[2020-03-03] MEDS ORDERED: MAG HYDROX/AL HYDROX/SIMETH 30 ML UNIT-DOSE CUP PO PRN (11:22)
[2020-03-03] MEDS ORDERED: ONDANSETRON 4 MG/2 ML VIAL IVPUSH PRN ×2 (11:22→12:37)
[2020-03-03] MEDS ORDERED: LACTATED RINGERS SOLUTION 1,000 ML IV SCH ×2 (11:30→12:45)
[2020-03-03] MEDS ORDERED: DEXAMETHASONE SOD PHOSPHATE 4 MG/1 ML VIAL ONE (12:14)
--- NOTE | 2020-03-03 12:27 | OP ---
Operative Note - Note: Operative Date: 03/03/20 (alma) Pre-Operative Diagnosis: right knee PF djd Operation: right patellofemoral makoplasty Post-Operative Diagnosis: Same as Pre-op Surgeon: Yoel Workman Air Bag Builder: Richard Sidhu Anesthesiologist/LANCE CREWMEMBER: Heavenly Vasquez Anesthesia: Spinal, Local Specimens Removed: bone fragments Estimated Blood Loss (mls): 50
[2020-03-03] MEDS ORDERED: oxyCODONE HCL 5 MG TABLET PO PRN (12:37)
[2020-03-03] MEDS ORDERED: ACETAMINOPHEN 1000 MG/100 ML VIAL (NON FORMULARY) IVPB ONE (12:37)
[2020-03-03] MEDS: oxyCODONE HCL 5 MG TABLET PO PRN ×2 (15:18→18:07)
[2020-03-03] MEDS ORDERED: NICOTINE 21 MG/24 HOURS TOPICAL PATCH TD SCH (16:00)
--- NOTE | 2020-03-03 16:55 | OP ---
DATE OF OPERATION: 03/03/2020 PREOPERATIVE DIAGNOSIS: Left patellofemoral arthritis. POSTOPERATIVE DIAGNOSIS: Left patellofemoral arthritis. PROCEDURE: Left patellofemoral replacement with robotic assisted navigation (Makoplasty). SURGICAL ATTENDING: Sharri Workman MD. FISH STRAIGHTENER: TRACI Orozco. ANESTHESIA: Regional and spinal. CLOSURE: A 3 trochlear component, a 32 patella component, number 1 Vicryl for fascia, 0 and 2-0 subcutaneous, 3-0 Monocryl subcuticular, skin glue for skin. ESTIMATED BLOOD LOSS: Negligible. COMPLICATIONS: None. CONDITION: To recovery in stable condition. DESCRIPTION OF OPERATIVE PROCEDURE: Patient taken to the operating room on March 03, 2020. Regional and spinal anesthesia was administered per the anesthesiologist. IV Kefzol was administered prophylactically prior to the case as was TXA. The left lower extremity was prepped and draped in the usual sterile fashion. An 8-cm curvilinear incision just medial to the midline over the patella was incised. Hemostasis achieved with Bovie cautery. Sharp dissection carried down to the level of the fascia, which was made flaps procedure. Medial parapatellar arthrotomy was then done enough to invert the patella 90 degrees. Patella was calipered for thickness and then osteotomized down to the appropriate level. A 32-mm lollipop was used to drill the lugholes in the patella. All adhesions around the patella were debrided. The patella prior to osteotomy showed an extensive wear and flattening. Osteophytes on its edges were also debrided. Two parallel threaded pins were drilled in the medial femoral condyle for a ray fixation as a checkpoint being malleted in this region. The knee was then registered with the navigation device with central fixation of the hip. Multiple pin points in and around the femur and "popping the bubbles." The [place] line was measured using the navigation device that was help to move the component mediolaterally in line with the natural [place] line, which mapping was done on its edges as well in order to ensure appropriate height and depth of the component. Robot was brought onto the field and the outline of the trochlear component was burred with the robot. Trial component was applied to both the patella and the femur. The knee was taken through a range of motion, found to go from full extension and full flexion with excellent tracking of the patella. The arrays were renewed, as was the checkpoint. The leg was exsanguinated with an Esmarch bandage, and tourniquet was inflated to 250 mmHg. The real components were then cemented in using cement technique with antibiotics. All excess cement was removed. The knee was again taken through a range of motion with excellent tracking. The knee was thoroughly irrigated with antibiotic irrigation. Medial parapatellar arthrotomy was then closed using number 1 Vicryl with interrupted suture. Post closure, the knee was again taken through range of motion and found to go from full extension to full flexion with no undue tension on the repair and excellent tracking. Subcutaneous was pulse antibiotic irrigated, tourniquet was deflated, hemostasis achieved. A cocktail was injected throughout the soft tissues. Subcutaneous was closed with 2-0 Vicryl and 3-0 Monocryl subcuticular with skin glue for skin. Sterile pressure dressing was applied. Patient was awakened from anesthesia and transferred to recovery in stable condition with no complications. Estimated blood loss negligible. Tourniquet time was up for approximately 20 minutes. SHARRI WORKMAN M.D. [id number]
[2020-03-03] MEDS: CEFAZOLIN 2 GM/D5W 2 GM/50 ML ML IVPB SCH (18:09)
[2020-03-03] MEDS: ACETAMINOPHEN 325 MG TABLET (FP) PO SCH (19:36)
[2020-03-03] MEDS: SENNOSIDES/DOCUSATE COMBO (SENNA PLUS) TABLET (UD) PO SCH (21:20)
[2020-03-03] MEDS: QUEtiapine FUMARATE 25 MG TABLET PO SCH (21:20)
[2020-03-03] MEDS: GABAPENTIN 300 MG CAPSULE PO SCH (21:20)
[2020-03-03] MEDS ORDERED: QUEtiapine FUMARATE 100 MG TABLET (FP) PO SCH (22:00)
[2020-03-04] MEDS: oxyCODONE HCL 5 MG TABLET PO PRN ×3 (00:34→10:36)
[2020-03-04] MEDS: CEFAZOLIN 2 GM/D5W 2 GM/50 ML ML IVPB SCH (02:29)
[2020-03-04] MEDS: ACETAMINOPHEN 325 MG TABLET (FP) PO SCH ×2 (02:29→08:49)
[2020-03-04 06:33] VITALS: PULSE 72
[2020-03-04] MEDS ORDERED: ASPIRIN 325 MG TABLET PO SCH (08:00)
[2020-03-04 08:50] VITALS: BP 121/69; TEMP 98.6
[2020-03-04] MEDS ORDERED: PANTOPRAZOLE 40 MG TABLET PO SCH (10:00)
[2020-03-04] MEDS ORDERED: MULTIVITAMINS (DAILY MVI) TABLET (FP) PO SCH (10:00)
[2020-03-04] MEDS ORDERED: RANOLAZINE E.R. 1,000 MG TABLET (FP) PO SCH (10:00)
--- NOTE | 2020-03-04 10:18 | PN ---
Progress Note (short form) - Note Progress Note: Anesthesia postop note 49 y/o F s/p spinal anesthesia/ nerve block for alberto knee replacement POD#1, vss, aaox3, pain well controlled, undergoing PT, no complaints. No anesthesia complications.
[2020-03-04] MEDS: QUEtiapine FUMARATE 25 MG TABLET PO SCH (10:35)
[2020-03-04] MEDS: GABAPENTIN 300 MG CAPSULE PO SCH (10:35)
[2020-03-04] MEDS: SENNOSIDES/DOCUSATE COMBO (SENNA PLUS) TABLET (UD) PO SCH ×2 (10:38→10:42)
--- NOTE | 2020-03-04 11:23 | PN ---
Progress Note (short form) - Note Progress Note: Ortho Pt seen and examined s/p left PF alberto pod #1 Selected Entries 03/04/20 08:50 Temperature 98.6 F Pulse Rate 72 Respiratory 18 Rate Blood Pressure 121/69 dressing c/d/i, rom 0-70, calf soft, nt nvi a/p PT dvt ppx pain control d/c home today f/u in 1 week
--- NOTE | 2020-03-04 11:24 | DS ---
Physical Examination Vital Signs: Vital Signs Temperature 98.6 F 03/04/20 08:50 Pulse Rate 72 03/04/20 08:50 Respiratory Rate 18 03/04/20 08:50 Blood Pressure 121/69 03/04/20 08:50 O2 Sat by Pulse Oximetry (%) 100 03/04/20 09:00 Discharge Summary Problems reviewed: Yes Reason For Visit: OSTEOARTHRITIS Procedures: Principal: left PF alberto Hospital Course: admitted for elective left PF alberto, post-op per protocol, stable for d/c Condition: Good - Instructions Diet, Activity, Other Instructions: Post-op Instructions-Partial Knee Replacement Call the office for a follow-up appointment in 1 week - [phone] Aspirin 325mg daily for 6 weeks. Pain medication was sent into your pharmacy. Apply Graduated Compression Stockings (TEDs) to both lower extremities- remove daily for hygiene ONLY Apply Sequential Compression Device (SCDs) to both Lower extremities remove for PT and hygiene ONLY Apply cold packs to affected area for 15 minutes every 2 hours. Physical Therapist will come to your home for the first 5 days. You will be set up with outpatient PT at your first post-operative visit. Patient may ambulate as tolerated-encourage self care (at least every 2-3 hours while awake) with walker or cane Maintain Aquacel (waterproof) dressing to operative wound (will be removed by surgeon at first office visit) Shower with Aquacel dressing in place-if Aquacel integrity compromised, remove and apply dry sterile dressing and notify Orthopedist. DO NOT SHOWER unless Orthopedists approves without Aquacel dressing CONTACT THE OFFICE FOR ANY CHANGE IN YOUR CONDITION (for example-fever greater than 102 degrees, excessive bleeding from operative site, purulent drainage, severe swelling or pain) GO TO THE EMERGENCY ROOM IF THERE IS A MEDICAL EMERGENCY Knee Precautions: * Keep a rolled towel under affected heel while in bed or chair (to keep knee in extension) * Keep affected leg elevated except during mealtimes * DO NOT PLACE PILLOW UNDER AFFECTED KNEE * If you have any questions, please do not hesitate to call the office - . Referrals: Yoel Workman MD [Staff Physician] - Disposition: [facility]NS/HOME HEALTH CARE - Home Medications Comprehensive Discharge Medication List: Ambulatory Orders Gabapentin 300 mg PO BID 12/04/17 Metoprolol Succinate 50 mg PO BID 12/04/17 Quetiapine Fumarate [Seroquel -] 50 mg PO BID 10/09/18 Quetiapine Fumarate [Seroquel -] 200 tab PO HS 10/09/18 Ranolazine [Ranexa] 1,000 mg PO DAILY 03/02/20 Aspirin [ASA -] 325 mg PO DAILY@0800 tablet 03/03/20 Oxycodone HCl/Acetaminophen [Percocet 5-325 mg Tablet -] 1 - 2 tab PO Q6H #50 tab MDD 8 03/03/20
== END 2020-03-04 11:59 | disposition home health service (06) ==
LOC: FM/S 07:51 → FASUSAT 07:51
PROVIDERS: ATTEND Orthopaedic Surgery
PROC: 8E0YXBZ Computer Assisted Procedure of Lower Extremity (ICD-10-PCS; 2020-03-03)
PROC: 8E0Y0CZ Robotic Assisted Procedure of Lower Extremity, Open Approach (ICD-10-PCS; 2020-03-03)
PROC: 0SRU0J9 Replacement of Left Knee Joint, Femoral Surface with Synthetic Substitute, Cemented, Open Approach (ICD-10-PCS; principal; 2020-03-03 11:25)
DX: M17.12 Unilateral primary osteoarthritis, left knee (principal)
CPT/HCPCS: 20985; 27442; C1776; S2900; 73560-TC-LT-FY; 94760; 97116-GP; 97162-GP; J0131

== ENCOUNTER 2020-05-02 14:25 | Inpatient (IN) | payer OTHER ==
[2020-05-02 14:33] VITALS: BMI 28.5
[2020-05-02 15:37] LABS: BASO % 1.1 % (0-2.0); EOS % 3.3 % (0-4.5); HEMATOCRIT 37.5 % (32.4-45.2); HEMOGLOBIN 12.9 GM/dL (10.7-15.3); LYMPH % 30.5 % (8-40); MCH 31.8 pg (25.7-33.7); MCHC 34.4 g/dl (32.0-36.0); MEAN CELL VOLUME 92.6 fl (80-96); MEAN PLT VOLUME 7.8 fl (7.5-11.1); MONO % 7.5 % (3.8-10.2); NEUT % 57.6 % (42.8-82.8); PLATELET COUNT 284 K/MM3 (134-434); RBC 4.05 M/mm3 (3.60-5.2); RDW 14.1 % (11.6-15.6); WHITE BLOOD COUNT 7.4 K/mm3 (4.0-10.0)
[2020-05-02 15:56] LABS: POTASSIUM 4.5 mmol/L (3.5-5.1)
[2020-05-02 15:58] LABS: CALCIUM 9.4 mg/dL (8.5-10.1)
[2020-05-02 15:59] LABS: ALBUMIN 4.1 g/dl (3.4-5.0)
[2020-05-02 16:02] LABS: CREATININE 0.8 mg/dL (0.55-1.3)
[2020-05-02] MEDS ORDERED: CLINDAMYCIN 900 MG PREMIX IVPB 900 MG/50 ML BAG IVPB ONE ×2 (16:02→16:05)
[2020-05-02 16:03] LABS: BILIRUBIN,TOTAL 0.2 mg/dL (0.2-1); TOT PROT 7.5 g/dl (6.4-8.2)
[2020-05-02] MEDS ORDERED: KETOROLAC TROMETHAMINE 30 MG/1 ML VIAL IVPUSH ONE (16:05)
[2020-05-02] MEDS ORDERED: KETOROLAC TROMETHAMINE 30 MG/1 ML VIAL ONE (16:07)
[2020-05-02 16:28] LABS: ERYTHROCYTE SEDIMENTATION RATE 17 mm/hr (0-20)
[2020-05-02] MEDS ORDERED: traMADol HCL 50 MG TABLET PO ONE (17:10)
[2020-05-02] MEDS ORDERED: traMADol HCL 50 MG TABLET ONE (17:12)
[2020-05-02] MEDS ORDERED: KETOROLAC TROMETHAMINE 15 MG/ML VIAL IVPUSH PRN (19:13)
[2020-05-02] MEDS ORDERED: VANCOMYCIN 500 MG VIAL (RESTRICTED TO ID ONLY) ONE (19:28)
[2020-05-02] MEDS ORDERED: VANCOMYCIN 1 GRAM (PRE-DOCKED) 1,000 MG/250 ML BAG IVPB ONE (19:28)
[2020-05-02] MEDS ORDERED: traMADol HCL 50 MG TABLET PO SCH ×2 (19:30→20:06)
[2020-05-02] MEDS ORDERED: VANCOMYCIN HCL 1,500 MG in DEXTROSE 5%-WATER - 500 ML IVPB SCH (19:45)
[2020-05-02] MEDS ORDERED: QUEtiapine FUMARATE 25 MG TABLET ONE (20:27)
[2020-05-02] MEDS ORDERED: DEXTROSE 5%-WATER - 50 ML IVPB ONE (20:28)
[2020-05-02] MEDS ORDERED: PIPERACILLIN/TAZOBACTAM 3.375 GM VIAL IVPB ONE (20:28)
[2020-05-02] MEDS ORDERED: PNEUMOC 13-VAL CONJ-DIP CRM/PF 0.5 ML DISP.SYRIN IM ONE (20:47)
[2020-05-02] MEDS ORDERED: PIPERACILLIN/TAZOB 3.375 GM 3.375 GM in DEXTROSE 5%-WATER - 50 ML IVPB SCH (21:00)
[2020-05-02] MEDS: VANCOMYCIN HCL 1,500 MG in DEXTROSE 5%-WATER - 500 ML IVPB SCH (21:29)
[2020-05-02] MEDS: PIPERACILLIN/TAZOB 3.375 GM 3.375 GM in DEXTROSE 5%-WATER - 50 ML IVPB SCH (21:30)
[2020-05-02] MEDS: GABAPENTIN 300 MG CAPSULE PO SCH (21:47)
[2020-05-02] MEDS: QUEtiapine FUMARATE 200 MG TABLET PO SCH (21:47)
[2020-05-02] MEDS: BACLOFEN 10 MG TABLET (FP) PO SCH (21:47)
[2020-05-02] MEDS: QUEtiapine FUMARATE 50 MG TABLET PO SCH (21:48)
[2020-05-02] MEDS ORDERED: PNEUMOCOCCAL 23 VACCINE 0.5 ML VIAL IM ONE (22:00)
[2020-05-03] MEDS ORDERED: PIPERACILLIN/TAZOBACTAM 3.375 GM VIAL IVPB ONE ×3 (01:13→17:27)
[2020-05-03] MEDS ORDERED: DEXTROSE 5%-WATER - 50 ML IVPB ONE ×3 (01:14→17:27)
[2020-05-03] MEDS: PIPERACILLIN/TAZOB 3.375 GM 3.375 GM in DEXTROSE 5%-WATER - 50 ML IVPB SCH ×3 (02:38→17:31)
[2020-05-03] MEDS: BACLOFEN 10 MG TABLET (FP) PO SCH ×3 (05:40→22:04)
[2020-05-03] MEDS ORDERED: PT OWN MED DRAWER 7, Y5N ONE (07:49)
[2020-05-03 08:12] LABS: POTASSIUM 5.2 mmol/L (3.5-5.1)
[2020-05-03 08:15] LABS: BLOOD UREA NITROGEN 16.8 mg/dL (7-18)
[2020-05-03 08:16] LABS: CALCIUM 8.7 mg/dL (8.5-10.1); MAGNESIUM 2.1 mg/dL (1.8-2.4)
[2020-05-03 08:19] LABS: CREATININE 0.9 mg/dL (0.55-1.3); PHOSPHOROUS 4.9 mg/dL (2.5-4.9)
[2020-05-03 08:26] LABS: HEMATOCRIT 35.7 % (32.4-45.2); HEMOGLOBIN 12.3 GM/dL (10.7-15.3); MCH 32.1 pg (25.7-33.7); MCHC 34.4 g/dl (32.0-36.0); MEAN CELL VOLUME 93.2 fl (80-96); MEAN PLT VOLUME 8.4 fl (7.5-11.1); PLATELET COUNT 228 K/MM3 (134-434); RBC 3.83 M/mm3 (3.60-5.2); RDW 13.8 % (11.6-15.6); WHITE BLOOD COUNT 8.6 K/mm3 (4.0-10.0)
[2020-05-03] MEDS ORDERED: QUEtiapine FUMARATE 25 MG TABLET ONE ×2 (09:47→21:58)
[2020-05-03] MEDS ORDERED: RANOLAZINE E.R. 500 MG TABLET (FP) ONE (09:47)
[2020-05-03] MEDS: traMADol HCL 50 MG TABLET PO SCH ×2 (09:50→22:03)
[2020-05-03] MEDS: GABAPENTIN 300 MG CAPSULE PO SCH ×2 (09:51→22:04)
[2020-05-03] MEDS: VANCOMYCIN HCL 1,500 MG in DEXTROSE 5%-WATER - 500 ML IVPB SCH ×2 (09:52→19:58)
[2020-05-03] MEDS: QUEtiapine FUMARATE 50 MG TABLET PO SCH ×2 (09:53→22:05)
[2020-05-03] MEDS ORDERED: RANOLAZINE E.R. 1,000 MG TABLET (FP) PO SCH (10:00)
[2020-05-03] MEDS ORDERED: NICOTINE 14 MG/24 HOURS TOPICAL PATCH TD SCH (10:45)
[2020-05-03] MEDS ORDERED: ENOXAPARIN NA (PORCINE) 40 MG/0.4 ML DISP.SYRIN SQ SCH (16:00)
[2020-05-03] MEDS: QUEtiapine FUMARATE 200 MG TABLET PO SCH (22:04)
[2020-05-04] MEDS ORDERED: DEXTROSE 5%-WATER - 50 ML IVPB ONE (01:08)
[2020-05-04] MEDS ORDERED: PIPERACILLIN/TAZOBACTAM 3.375 GM VIAL IVPB ONE (01:08)
[2020-05-04] MEDS: PIPERACILLIN/TAZOB 3.375 GM 3.375 GM in DEXTROSE 5%-WATER - 50 ML IVPB SCH (01:49)
[2020-05-04 06:17] VITALS: BP 126/76; PULSE 70; TEMP 98
[2020-05-04] MEDS: BACLOFEN 10 MG TABLET (FP) PO SCH (06:38)
[2020-05-04] MEDS: VANCOMYCIN HCL 1,500 MG in DEXTROSE 5%-WATER - 500 ML IVPB SCH (19:52)
== END 2020-05-04 08:29 | disposition left against medical advice (07) | DRG 344 ==
LOC: JER 14:25 → JERBED 17:04 → J5S 20:20
PROVIDERS: ADMIT Internal Medicine; ATTEND Nurse Practitioner Acute Care
DX: M00.9 Pyogenic arthritis, unspecified (principal); F14.20 Cocaine dependence, uncomplicated; Q24.5 Malformation of coronary vessels; F11.20 Opioid dependence, uncomplicated; I10 Essential (primary) hypertension; M25.562 Pain in left knee; Z96.652 Presence of left artificial knee joint; Z20.828 Contact with and (suspected) exposure to other viral communicable diseases
CPT/HCPCS: 36415; 71045-TC-FY; 73562-TC-LT-FY; 80048; 80053; 83735; 84100; 85025; 85027; 85651; 86140; 87040; 90732; 93005; 93010; 93971-TC; 99285-25; C9803; G0009; G0480; J0475; U0003

== ENCOUNTER 2021-04-17 12:25 | Emergency (ER) | payer OTHER ==
[2021-04-17 13:03] VITALS: BMI 25.6
[2021-04-17] MEDS ORDERED: MAGNESIUM SULF 50% (8.12 MEQ/2 ML-1 GM VIAL) IVPB ONE (15:01)
[2021-04-17] MEDS ORDERED: methylPREDNISolone NA SUCC 125 MG/2 ML VIAL IVPB ONE (15:01)
[2021-04-17 15:05] LABS: BASO % 0.3 % (0-2.0); EOS % 3.6 % (0-4.5); HEMATOCRIT 36.6 % (32.4-45.2); HEMOGLOBIN 12.5 GM/dL (10.7-15.3); LYMPH % 16.1 % (8-40); MCH 31.3 pg (25.7-33.7); MCHC 34.1 g/dl (32.0-36.0); MEAN CELL VOLUME 91.7 fl (80-96); MONO % 5.8 % (3.8-10.2); NEUT % 74.2 % (42.8-82.8); PLATELET COUNT 286 10^3/uL (134-434); RBC 3.99 M/mm3 (3.60-5.2); RDW 13.5 % (11.6-15.6); WHITE BLOOD COUNT 11.4 K/mm3 (4.0-10.0)
[2021-04-17] MEDS ORDERED: methylPREDNISolone NA SUCC 125 MG/2 ML VIAL ONE (15:26)
[2021-04-17] MEDS ORDERED: MAGNESIUM SULFATE IN WATER 2 GM/50 ML IVPB IVPB ONE (15:26)
[2021-04-17 15:28] LABS: CALCIUM 9.1 mg/dL (8.5-10.1)
[2021-04-17 15:30] LABS: BLOOD UREA NITROGEN 12.3 mg/dL (7-18)
[2021-04-17 15:32] LABS: CREATININE 0.7 mg/dL (0.55-1.3)
[2021-04-17 15:33] LABS: BILIRUBIN,TOTAL 0.3 mg/dL (0.2-1)
[2021-04-17 15:35] LABS: TOT PROT 7.6 g/dl (6.4-8.2)
[2021-04-17] MEDS ORDERED: ALBUTEROL SO4 0.083% IH SOL 2.5 MG/3 ML VIAL.NEB. NEB ONE ×2 (15:37→15:51)
[2021-04-17] MEDS ORDERED: ACETAMINOPHEN 500 MG TABLET (FP) PO ONE (15:43)
[2021-04-17] MEDS ORDERED: ACETAMINOPHEN 325 MG TABLET (FP) ONE (15:51)
[2021-04-17] MEDS ORDERED: ALBUTEROL SO4 2.5/IPRATROPIUM 0.5 INH SOL 3 ML VIAL.NEB. NEB ONE (16:07)
[2021-04-17] MEDS: ALBUTEROL SO4 2.5/IPRATROPIUM 0.5 INH SOL 3 ML VIAL.NEB. NEB SCH ×2 (16:09→17:40)
[2021-04-17 16:22] LABS: INR 1.11 (0.83-1.09); PROTHROMBIN TIME (PATIENT) 12.5 SEC (9.7-13.0)
[2021-04-17 16:25] LABS: ACTIVATED PTT 31.9 SECONDS (25.2-36.5)
[2021-04-17 17:17] VITALS: BP 139/83; PULSE 102; TEMP 98.1
[2021-04-17] MEDS ORDERED: AZITHROMYCIN 500 MG TABLET PO ONE (17:29)
== END 2021-04-17 18:33 | disposition home or self-care (01) ==
LOC: JER 12:25
PROC: 3E0F7GC Introduction of Other Therapeutic Substance into Respiratory Tract, Via Natural or Artificial Opening (ICD-10-PCS; principal; 2021-04-17)
PROC: 3E033NZ Introduction of Analgesics, Hypnotics, Sedatives into Peripheral Vein, Percutaneous Approach (ICD-10-PCS; 2021-04-17)
PROC: 3E033NZ Introduction of Analgesics, Hypnotics, Sedatives into Peripheral Vein, Percutaneous Approach (ICD-10-PCS; 2021-04-17)
DX: J45.901 Unspecified asthma with (acute) exacerbation (principal)
CPT/HCPCS: 36415; 71046-TC-FY; 80053; 85025; 85610; 85730; 93005; 93010; 99284-25

== ENCOUNTER 2021-10-20 12:15 | Emergency (ER) | payer OTHER ==
[2021-10-20 12:32] VITALS: BP 112/71; PULSE 76; TEMP 98; BMI 27.8
[2021-10-20] MEDS ORDERED: KETOROLAC TROMETHAMINE 30 MG/1 ML VIAL IM ONE (13:12)
[2021-10-20] MEDS ORDERED: KETOROLAC TROMETHAMINE 30 MG/1 ML VIAL ONE (13:15)
== END 2021-10-20 14:23 | disposition home or self-care (01) ==
LOC: JER 12:15 → JERFT 12:15
PROC: 3E0233Z Introduction of Anti-inflammatory into Muscle, Percutaneous Approach (ICD-10-PCS; principal; 2021-10-20)
DX: M25.551 Pain in right hip (principal); W01.0XXA Fall on same level from slipping, tripping and stumbling without subsequent striking against object, initial encounter
CPT/HCPCS: 72170-TC-FY; 73502-TC-RT-FY; 73562-TC-LT-FY; 99285-25

== ENCOUNTER 2021-11-17 08:23 | Emergency (ER) | payer OTHER ==
[2021-11-17 08:34] VITALS: BP 135/89; PULSE 94; TEMP 98.5; BMI 27.4
[2021-11-17] MEDS ORDERED: SODIUM CHLORIDE 0.9% 500 ML INFUS.BAG IV ONE (10:48)
[2021-11-17] MEDS ORDERED: METOCLOPRAMIDE HCL INJECTION 10 MG/2 ML VIAL IVPUSH ONE (10:48)
[2021-11-17] MEDS ORDERED: KETOROLAC TROMETHAMINE 30 MG/1 ML VIAL IVPUSH ONE (10:49)
[2021-11-17] MEDS ORDERED: KETOROLAC TROMETHAMINE 30 MG/1 ML VIAL ONE (10:54)
[2021-11-17] MEDS ORDERED: METOCLOPRAMIDE HCL INJECTION 10 MG/2 ML VIAL ONE (10:54)
[2021-11-17 11:48] LABS: BASO % 1.2 % (0-2.0); EOS % 0.7 % (0-4.5); HEMOGLOBIN 14.5 GM/dL (10.7-15.3); LYMPH % 30.1 % (8-40); MCH 31.3 pg (25.7-33.7); MCHC 34.5 g/dl (32.0-36.0); MEAN CELL VOLUME 90.8 fl (80-96); MEAN PLT VOLUME 8.2 fl (7.5-11.1); MONO % 7.3 % (3.8-10.2); NEUT % 60.7 % (42.8-82.8); PLATELET COUNT 349 10^3/uL (134-434); RBC 4.62 M/mm3 (3.60-5.2); RDW 14.2 % (11.6-15.6); WHITE BLOOD COUNT 7.1 K/mm3 (4.0-10.0)
[2021-11-17 12:14] LABS: CALCIUM 9.8 mg/dL (8.5-10.1)
[2021-11-17 12:15] LABS: ALBUMIN 4.6 g/dl (3.4-5.0); BLOOD UREA NITROGEN 14.4 mg/dL (7-18)
[2021-11-17 12:18] LABS: CREATININE 0.7 mg/dL (0.55-1.3)
[2021-11-17 12:20] LABS: BILIRUBIN,TOTAL 0.4 mg/dL (0.2-1); TOT PROT 8.5 g/dl (6.4-8.2)
== END 2021-11-17 12:46 | disposition home or self-care (01) ==
LOC: JER 08:23 → JERFT 08:23 → JER 12:46
PROC: 3E0333Z Introduction of Anti-inflammatory into Peripheral Vein, Percutaneous Approach (ICD-10-PCS; principal; 2021-11-17)
PROC: 3E033GC Introduction of Other Therapeutic Substance into Peripheral Vein, Percutaneous Approach (ICD-10-PCS; 2021-11-17)
DX: R51.9 Headache, unspecified (principal)
CPT/HCPCS: 36415; 80053; 85025; 99284-25

== ENCOUNTER 2023-02-11 21:44 | Emergency (ER) | payer OTHER ==
[2023-02-11 21:58] VITALS: BP 144/75; PULSE 78; RESP 19; TEMP 98.1; BMI 26.6
[2023-02-11] MEDS ORDERED: KETOROLAC TROMETHAMINE 30 MG/1 ML VIAL IM ONE (22:57)
[2023-02-11] MEDS ORDERED: diphenhydrAMINE HCL 50 MG CAPSULE PO ONE (22:58)
[2023-02-11] MEDS ORDERED: KETOROLAC TROMETHAMINE 30 MG/1 ML VIAL ONE (23:19)
[2023-02-11] MEDS ORDERED: diphenhydrAMINE HCL 25 MG CAPSULE (FP) PO ONE (23:19)
== END 2023-02-11 23:29 | disposition home or self-care (01) ==
LOC: JER 21:44
PROC: 3E0233Z Introduction of Anti-inflammatory into Muscle, Percutaneous Approach (ICD-10-PCS; principal; 2023-02-11)
DX: T63.441A Toxic effect of venom of bees, accidental (unintentional), initial encounter (principal); M79.644 Pain in right finger(s); R22.31 Localized swelling, mass and lump, right upper limb
CPT/HCPCS: 99284-25

== ENCOUNTER 2024-07-24 04:10 | Day surgery (SDC) | payer OTHER ==
[2024-07-22 12:30] VITALS: BMI 31.8
[2024-07-24] MEDS ORDERED: MIDAZOLAM HCL 2 MG/2 ML SINGLE DOSE VIAL ONE ×2 (10:36→12:57)
[2024-07-24] MEDS ORDERED: PROPOFOL 20 ML ONE ×2 (10:37→13:35)
[2024-07-24] MEDS ORDERED: ROCURONIUM BROMIDE 50 MG/5 ML SYRINGE ONE ×2 (10:37→13:18)
[2024-07-24] MEDS ORDERED: ONDANSETRON 4 MG/2 ML VIAL IVPUSH PRN ×2 (12:57→16:31)
[2024-07-24] MEDS ORDERED: PROMETHAZINE HCL 25 MG/1 ML VIAL IVPB PRN (12:57)
[2024-07-24] MEDS ORDERED: ACETAMINOPHEN INJECTION 100 ML ONE (13:01)
[2024-07-24] MEDS ORDERED: SUGAMMADEX SODIUM 200 MG/2 ML VIAL ONE (13:03)
[2024-07-24] MEDS: ceFAZolin SODIUM 1 GM VIAL IVPB ONE (13:10)
[2024-07-24] MEDS ORDERED: HYDROmorphone HCl 2 MG/ML VIAL ONE (13:18)
[2024-07-24] MEDS ORDERED: LABETALOL HCL 20 MG/4 ML VIAL ONE (13:39)
[2024-07-24] MEDS ORDERED: ONDANSETRON 4 MG/2 ML VIAL ONE (13:42)
[2024-07-24] MEDS ORDERED: SEVOFLURANE 250 ML BTL ONE (14:18)
[2024-07-24] MEDS ORDERED: SUCCINYLCHOLINE CHLORIDE 200 MG/10 ML SYRINGE ONE (14:23)
[2024-07-24] MEDS ORDERED: KETOROLAC TROMETHAMINE 30 MG/1 ML VIAL ONE (14:35)
[2024-07-24] MEDS ORDERED: SIMETHICONE 80 MG TAB.CHEW (FP) PO PRN (16:31)
[2024-07-24] MEDS ORDERED: ACETAMINOPHEN 325 MG TABLET (FP) PO PRN (16:31)
[2024-07-24] MEDS ORDERED: oxyCODONE HCL 5 MG TABLET PO PRN (16:31)
[2024-07-24] MEDS ORDERED: BISACODYL 5 MG TABLET.DR (FP) PO PRN (16:31)
[2024-07-24] MEDS ORDERED: DOCUSATE SODIUM 100 MG CAPSULE (FP) PO PRN (16:31)
[2024-07-24] MEDS: ARTIFICIAL TEARS OPHTHALMIC DROPS OU PRN (17:41)
[2024-07-24] MEDS: LACTATED RINGERS SOLUTION 1,000 ML IV SCH (17:58)
[2024-07-24 18:21] VITALS: BP 149/79; PULSE 84; RESP 18; TEMP 98.4
[2024-07-24] MEDS ORDERED: NICOTINE 21 MG/24 HOURS TOPICAL PATCH TD SCH (18:23)
[2024-07-24] MEDS ORDERED: traMADol HCL 50 MG TABLET PO PRN (18:24)
[2024-07-24] MEDS: diphenhydrAMINE HCL 25 MG CAPSULE (FP) PO ONE (19:49)
[2024-07-24] MEDS ORDERED: CEFAZOLIN 1 GM/D5W 1 GM/50 ML BAG IVPB SCH (21:00)
[2024-07-24] MEDS ORDERED: ATORVASTATIN CA 80 MG TABLET (FP) PO SCH (22:00)
[2024-07-24] MEDS ORDERED: cloNIDine HCL 0.1 MG TABLET PO SCH (22:00)
[2024-07-24] MEDS ORDERED: GABAPENTIN 300 MG CAPSULE PO SCH (22:00)
[2024-07-24] MEDS ORDERED: metoPROLOL SUCCINATE 25 MG TAB.SR.24H (FP) PO SCH (22:00)
[2024-07-24] MEDS ORDERED: ACETAMINOPHEN 1000 MG/100 ML BAG IVPB SCH (22:00)
[2024-07-24] MEDS ORDERED: KETOROLAC TROMETHAMINE 30 MG/1 ML VIAL IVPUSH SCH (23:00)
[2024-07-25] MEDS ORDERED: SERTRALINE HCL 50 MG TABLET (FP) PO SCH (10:00)
[2024-07-25] MEDS ORDERED: RANOLAZINE E.R. 1,000 MG TABLET (FP) PO SCH ×2 (10:00)
== END 2024-07-24 20:05 | disposition home or self-care (01) ==
LOC: JASUSAT 04:10 → JASU-SURG 04:10 → J6S 18:11 → JASUSAT 20:05
PROVIDERS: ATTEND Specialist
PROC: 0JQC0ZZ Repair Pelvic Region Subcutaneous Tissue and Fascia, Open Approach (ICD-10-PCS; principal; 2024-07-24 10:45)
PROC: 0USG0ZZ Reposition Vagina, Open Approach (ICD-10-PCS; 2024-07-24 10:45)
DX: N81.4 Uterovaginal prolapse, unspecified (principal)
CPT/HCPCS: 88302-TC; 88305-TC; 94760; J0131